=== PATIENT | male | born 1990 | race Two or more races ===

== ENCOUNTER 2020-04-11 15:36 | Emergency (ER) | payer MEDICAID ==
[~2020-04-11] VITALS: Ht 167.6 cm; Wt 72.6 kg
[2020-04-11] MEDS ORDERED: ACETAMINOPHEN 650 MG/20.3 ML LIQUID UDC PO ONE (15:45)
[2020-04-11] MEDS ORDERED: LIDOCAINE HCL 1% 20 ML VIAL IJ ONE (15:45)
[2020-04-11] MEDS ORDERED: TDAP DIPH,PERTUSS,TET VAC/PF 0.5 ML DISP.SYRIN IM ONE ×2 (15:45→17:07)
--- NOTE | 2020-04-11 15:47 | NUR ---
Pt BIB [facility], reports pt fell about 8 feet on ladder, lacerated forehead; c-collar on pt. w/o BBoard. Pt A&Ox4, PERRLA, [place] speaking, c/o QUEZADA, 11/05, and forehead lac (bleeding stopped), as well as left elbow pain 01/05 and tenderness, movement limited due to pain, sensation and circ. intact, cap refill < 2 sec. -- slight tingling in fingers of left arm; denies other numbness or tingling. Pt denies CP, SOB, dizziness, n/v, no other complaints, no distress noted.
[2020-04-11] MEDS ORDERED: ACETAMINOPHEN 325 MG TABLET ONE (16:48)
--- NOTE | 2020-04-11 17:49 | NUR ---
Pt Given RX and d/c instructions, pt verbalized understanding.
[2020-04-11 17:52] VITALS: BP 140/65
--- NOTE | 2020-04-11 17:52 | NUR ---
Patient discharged to home in stable condition. Written and verbal after care instructions given. Patient verbalizes understanding of instructions. Stressed follow up or return to ER for worsening s/s.
== END 2020-04-11 17:52 | disposition home or self-care (01) ==
LOC: ER 15:36
DX: S01.81XA Laceration without foreign body of other part of head, initial encounter (principal); S50.02XA Contusion of left elbow, initial encounter; S09.90XA Unspecified injury of head, initial encounter; W11.XXXA Fall on and from ladder, initial encounter; Y99.9 Unspecified external cause status; Y92.9 Unspecified place or not applicable
CPT/HCPCS: 12013; 70450; 71045; 72125; 73080; 90471; 90715; 99285; J3490; A4663

== ENCOUNTER 2020-04-18 11:16 | Emergency (ER) | payer MEDICAID ==
[~2020-04-18] VITALS: Ht 167.6 cm; Wt 72.6 kg
--- NOTE | 2020-04-18 11:37 | NUR ---
DR Alvarez at the bedside and removed sutures from pt's Lt forehead.
[2020-04-18 11:42] VITALS: BP 124/74
== END 2020-04-18 12:20 | disposition home or self-care (01) ==
LOC: ER 11:16
DX: S01.81XD Laceration without foreign body of other part of head, subsequent encounter (principal); W11.XXXD Fall on and from ladder, subsequent encounter
CPT/HCPCS: A4663